=== PATIENT | male | born 1960 | race Caucasian/White ===

== ENCOUNTER 2017-02-02 07:00 | Inpatient (IN) | payer BC ==
[~2017-02-02] VITALS: Ht 182.9 cm; Wt 121.0 kg
--- NOTE | ~2017-02-02 | ECHO ---
Transthoracic Echocardiography Report (TTE) Demographics Patient Name WANDY PUENTES Date of Study 02/02/2017 Patient Number [id number] Visit Number [id number] Date of 1960 Room Number G6330 Gender Male Number Age 56 year(s) Referring Neelima Dominguez Netting Weaver Marla Silveira RVT Physician MD Martir Choudhury MD Physician Interpreting Leandro Gilman Taxation Agent Physician Supervising Ordering Neelima Dominguez MD/MLP Physician Nurse Stress Bale Sewer Conclusions Contractility Score Summary Normal Left Ventricular contractility was noted. Summary The estimated left ventricular ejection fraction is 50% with normal WM and internal dimension.Mild concentric hypertrophy with moderate OLIVIA. Diastolic assessment reveals Grade II pseudonormal diastolic function . The left atrium is moderately dilated. Trivial mitral regurgitation by color Doppler. Procedure Type of Study TTE procedure:2D Echocardiogram. Procedure Date Date: 02/02/2017 Start: 03:22 PM Study Location: Inpatient Portable Technical Quality: Adequate visualization Indications:Post PTCA. Appropriate Use Criteria: 9 Patient Status: Routine HR: 51 bpm Allergies - No known allergies. M-Mode/2D Measurements LV Diastolic Dimension: 5.48 cm LV Systolic Dimension: 4.72 cm LV Septum Diastolic: 1.63 cm LV PW Diastolic: 1.24 cm AO Root Dimension: 3.1 cm Cardiac Output: 3.66 l/min AV Cusp Separation: 2 cm RV Diastolic Dimension: 3.29 cm LA volume: 100 ml LVOT: 2.2 cm RV Base: 2.85 cm LVOT VTI: 18.9 cm RV Mid: 3.14 cm LV Stroke volume: 71.81 ml TAPSE: 1.69 cm TDI-S': 15.4 cm/s Doppler Measurements AV Peak Velocity: 1.46 m/s MV Peak E-Wave: 0.89 m/s AV Peak Gradient: 8.53 mmHg MV Peak A-Wave: 0.48 m/s AV Mean Gradient: 4 mmHg MV E/A Ratio: 1.86 LVOT Peak Velocity: 0.99 m/s MV P1/2t: 62 msec PV Peak Velocity: 0.92 m/s E' Septal Velocity: 0.08 m/s PV Peak Gradient: 3.42 mmHg E' Lateral Velocity: 0.11 m/s A' Septal Velocity: 0.11 m/s A' Lateral Velocity: 0.14 m/s Findings Left Ventricle Mild concentric LVH with moderate OLIVIA with normal EF,WM and internal dimension. Diastolic assessment reveals Grade II pseudonormal diastolic function . Right Ventricle Normal right ventricle structure and function. Left Atrium The left atrium is moderately dilated. Right Atrium Normal right atrial size. Mitral Valve Trivial mitral regurgitation by color Doppler. Aortic Valve Normal aortic valve structure and function. Tricuspid Valve Normal tricuspid valve structure and function. Pulmonic Valve Normal pulmonic valve structure and function. Pericardial Effusion No evidence of pericardial effusion. Miscellaneous Visualized portions of the aortic root and ascending aorta appear normal in size. Pleural Effusion No evidence of pleural effusion. Contractility Score LV regional wall motion:(0-Non visualized 1-Normal 2-Hypokinesis 3-Akinesis 4-Dyskinesis 5-Aneurysm) Signature dtt: Kalina Reeves dtd: 02/02/17 1522 Physician Self Edit
--- NOTE | ~2017-02-02 | DS ---
PATIENT'S NAME: WANDY PUENTES [facility] AGE: 56 Y [address] ROOM: G6330 [place], [place] [address] LOCATION: GPCU ADMIT DATE: 02/02/2017 Discharge Summary DISCHARGE DATE: FAMILY PHYSICIAN: Doroteo Pardo MD ATTENDING PHYSICIAN: Yang Mcmahan PRINCIPAL DIAGNOSES: 1. Acute coronary syndrome with 2 drug-eluting stent to RCA and one drug- eluting stent to mid LAD. 2. Prediabetes. 3. Sinus bradycardia. 4. Moderate obesity. HOSPITAL COURSE: This is a 56-year-old gentleman with a past medical history of carcinoid tumor, status post resection, presented to emergency department with a chest pain which was central, pressure-like, very much consistent with cardiac in etiology. Initial EKG showed ST depression in the lateral leads as well as T-wave inversion in the anterior leads. Repeat EKG did show worsening of these findings. He was also found in sinus bradycardia. Initial troponin levels were mildly elevated but did go as high as 17. Cardiology was consulted and the patient was immediately taken to the laboratory operations coordinator with stenting done to RCA as well as mid LAD. He got chest pain resolution upon receiving the stent. On lab work, he also had hemoglobin A1c of 6.3. He was started on metformin. He will be discharged on multiple new drugs which would include dual anti-platelets, beta-blockers and a statin. He will also be started on metformin. We will have him follow up with Cardiology as well as primary care physician. Echocardiography has been done in this hospitalization, which still needs to be read at this point. DISCHARGE MEDICATIONS: Includes: 1. Brilinta 90 mg p.o. b.i.d., please do not stop this medication. 2. Aspirin 81 mg p.o. every day. 3. Lipitor 80 mg p.o. every day. 4. Metoprolol succinate 12.5 mg p.o. every day. 5. Metformin 500 mg p.o. b.i.d. SUBJECTIVE: On the day of the discharge, no acute events overnight. Denied any chest pain, shortness of breath, headache, or fever. OBJECTIVE: VITAL SIGNS: Reviewed and were within normal limits. GENERAL: No acute distress. Alert and oriented x3. CARDIOVASCULAR: S1, S2. No murmurs, gallops, or rubs. LUNGS: Clear to auscultation bilaterally. ABDOMEN: Soft, nontender, nondistended. Bowel sounds are present. EXTREMITIES: No clubbing, cyanosis, or edema. PATIENT'S NAME: WANDY PUENTES [facility] AGE: 56 Y [address] ROOM: [place] [address] LOCATION: GPCU ADMIT DATE: 02/02/2017 Discharge Summary DISCHARGE DATE: FAMILY PHYSICIAN: Doroteo Pardo MD ATTENDING PHYSICIAN: Yang Mcmahan LABORATORY DATA: Reviewed with troponins coming down from 35 to 23 to 13. Chemical panel was unremarkable with mild elevation of the AST to 66. LDL was 117, HDL 34, total cholesterol 205. DISCHARGE INSTRUCTIONS: Cardiac rehab plus lifestyle modification to lose weight. Start metformin as well. FOLLOWUP: Follow up with primary care physician in 1 week. Follow up with Cardiology in 4 weeks. I spent 35 minutes in discharge planning, coordination of care as well as explaining the diagnosis and the followup to the patient. MD JACK FLORENTINO/césar /[id number] d: 02/03/17 1105 t: 02/04/17 1657, DISCHARGE SUMMARY
--- NOTE | ~2017-02-02 | HP ---
PATIENT'S NAME: WANDY PUENTES [facility] AGE: 56 Y [address] ROOM: [place] [address] [facility] ADMIT DATE: 02/02/2017 History & Physical DISCHARGE DATE: FAMILY PHYSICIAN: PHYSICIAN, UNKNOWN ATTENDING PHYSICIAN: YOSEF JASON DATE OF SERVICE: CHIEF COMPLAINT: Chest pain. HISTORY OF PRESENT ILLNESS: A 56-year-old gentleman with a past medical history of resection of carcinoid tumor, on no home medications, known smoker, presented to the [place] [facility] with chest pain, which started 4:30 this morning, located in the center of the chest about 7 x 10, and no radiation. Continued for good 2 hours and relieved with the nitroglycerin in the emergency department. No aggravating or alleviating factors associated with severe diaphoresis. No shortness of breath or dizziness are reported along with it. On further inquiry, he denied any headache, any trouble with the eyes, any trouble swallowing, any palpitations, any cough, sputum production, abdominal pain, burning on urination, constipation, diarrhea, PND, orthopnea, or leg swelling. REVIEW OF SYSTEMS: All other systems reviewed and were negative except what is mentioned in the HPI. ALLERGIES: NO KNOWN DRUG ALLERGIES. PAST MEDICAL HISTORY: 1. History of carcinoid tumor. 2. Questionable history of hypertension. MEDICATIONS: No home medications. SOCIAL HISTORY: Never a smoker. No alcohol or drug abuse. He is an electrician's assistant by profession. FAMILY HISTORY: Positive for stroke in dad at the age of 49 as well as diabetes. PHYSICAL EXAMINATION: PATIENT'S NAME: WANDY PUENTES [facility] AGE: 56 Y [address] ROOM: [address] [address] LOCATION: [facility] ADMIT DATE: 02/02/2017 History & Physical DISCHARGE DATE: FAMILY PHYSICIAN: PHYSICIAN, UNKNOWN ATTENDING PHYSICIAN: YOSEF JASON VITAL SIGNS: 145/68, 45, 12, and satting 95% on room air. GENERAL: No acute distress. Alert and oriented x3. HEENT: Head: Atraumatic, normocephalic. Eyes: Nonicteric. No pallor. Oropharynx: Moist mucous membranes. CARDIOVASCULAR: S1, S2. No murmurs, gallops, or rubs. LUNGS: Clear to auscultation bilaterally. ABDOMEN: Soft, nontender, nondistended. Bowel sounds present. EXTREMITIES: No clubbing, cyanosis, or edema. PSYCH: Normal affect, mood, and speech. NEURO: Cranial nerves 2 through 12 intact. No motor or sensory deficit. ENDOCRINE: No thyromegaly or cushingoid features noted. LYMPHATICS: No lymphangitis or lymphadenopathy present. MUSCULOSKELETAL: No muscle tenderness or joint swelling noted. DIAGNOSTIC DATA: EKG from outside facility was reviewed and did show sinus bradycardia with T- wave inversion in the lateral leads. Repeat EKG showed worsening of the T- wave inversion in the lateral leads as well as ST depressions in I and aVL. His other lab work included chest x-ray, which did not reveal any acute changes except cardiomegaly without any vascular congestion. LABORATORY DATA: Lab work was reviewed, which was unremarkable. ASSESSMENT: 1. Acute coronary syndrome. 2. Sinus bradycardia. PLAN: We are going to start him on aspirin, statin, heparin drip, and nitro. No beta-blockers given his low heart rate. Cardiology is going to take the patient to the [facility] urgently. N.p.o. for that. Cardiac diet after that. HbA1c, TSH, and lipid profile after that. The patient is full code. MD JACK FLORENTINO/césar /[id number] D: [id number] T: [id number] HISTORY & PHYSICAL
--- NOTE | ~2017-02-02 | CON ---
PATIENT'S NAME: WANDY PUENTES [facility] AGE: 56 Y [address] ROOM: [place] [address] LOCATION: GPCU ADMIT DATE: 02/02/2017 Consultation DISCHARGE DATE: 02/04/2017 FAMILY PHYSICIAN: Doroteo Pardo MD ATTENDING PHYSICIAN: Yang Mcmahan CORRECTED COPY -- REQUESTING PROVIDER / 02-05-2017 / ANGIE DATE OF CONSULTATION: 02/02/2017 REQUESTING PROVIDERS: 1. Dr. Reeves. 2. Dr. Mcmahan. CHIEF COMPLAINT: Chest pain. HISTORY OF PRESENTING ILLNESS: The patient is a very pleasant, 56-year-old male who has a history of carcinoid tumor of the small intestine as well as history of kidney stones. He does not have any prior cardiac history. He was in his usual state of health up until this morning at 4 a.m. He got up to go to the bathroom, and he started having severe chest pain, 7/10 on pain scale, and it persisted and was not improving. It was associated with some shortness of breath, no radiation, as well as diaphoresis. Since symptoms did not improve, he drove himself to the emergency room, which is about 4 blocks away. Once he went to the ER, there was evidence of ST changes as well as mildly elevated troponin with ongoing chest pain. He was given aspirin and 2 sublingual nitroglycerin, and he was transferred to our facility. Upon arrival here, the patient still continued to have chest pain, 3/10 on pain scale. It is mostly tightness in nature. He is mildly uncomfortable from this. There are increasing ST depressions in leads I, aVL, as well as V1 to V6 compared to prior EKG at [place]. Since he is having ongoing chest pain, nitroglycerin drip as well as heparin drip were started here, and plan to start Aggrastat drip as well and take him emergently to the cardiac biological lab technician. Risks and benefits discussed with the patient, and he is agreeable to proceed with plan. He does not have any bleeding issues. No contrast allergies. No contraindications to DAPT. He does not have any nausea, vomiting, fever, chills, cough, or sputum production. No changes in his vision, speech, strength, or sensation. No changes in his swallowing. No skin rashes. No recent travel. PAST MEDICAL HISTORY: History of kidney stones as well as neuroendocrine carcinoid of the small bowel and incisional hernia. PAST SURGICAL HISTORY: Cholecystectomy and surgery for the carcinoid tumor of the small bowel. PATIENT'S NAME: WANDY PUENTES [facility] AGE: 56 Y [address] ROOM: [place] [address] LOCATION: GPCU ADMIT DATE: 02/02/2017 Consultation DISCHARGE DATE: 02/04/2017 FAMILY PHYSICIAN: Doroteo Pardo MD ATTENDING PHYSICIAN: Yang Mcmahan ALLERGIES: NO KNOWN DRUG ALLERGIES. HOME MEDICATIONS: None. SOCIAL HISTORY: Nonsmoker. No drinking. No drug abuse. FAMILY HISTORY: Positive for premature coronary artery disease. REVIEW OF SYSTEMS: All review of systems discussed with the patient. Pertinent positives and negatives mentioned in the History of Presenting Illness. PHYSICAL EXAMINATION: VITAL SIGNS: Sinus bradycardia, heart rate in the 40s, blood pressure 150/80, afebrile, respiratory rate 14, and O2 saturation is greater than 90% on room air. NECK: No JVD. HEART: S1 and S2, regular rate and rhythm. HEENT: Head: Atraumatic, normocephalic. Mucous membranes moist. Sclerae are white. LUNGS: Clear to auscultation bilaterally. ABDOMEN: Bowel sounds positive. Soft, nontender, and nondistended. EXTREMITIES: No significant lower extremity edema. MUSCULOSKELETAL: Good range of motion. NEUROLOGIC: Grossly normal. The patient is not in any apparent distress. Alert and oriented. Mood normal. Affect normal. The patient is very pleasant and cooperative, answers all questions appropriately. GENERAL: Pt is alert and oriented, NAD, normal mood and affect, pt is cooperative and answers all questions appropriately. LABORATORY DATA: Glucose 170, BUN 17, creatinine 1.17, GFR greater than 60, sodium 141, potassium 4.2, chloride is 104, and calcium 9.3. Albumin 3.9 and globulin 3.5. AST 28, ALT 41, and alkaline phosphatase is 74. Calculated osmolality 287. CK- MB 4.8, troponin elevated at 0.630, and INR is 0.9. WBC 7.8, H and H 15.1 and 45.5, and platelets are 203. EKG: Sinus bradycardia with ST depressions in leads I, aVL, and V1 to V6. Labs here are pending. IMPRESSION: 1. [id number] myocardial infarction. PATIENT'S NAME: WANDY PUENTES [facility] AGE: 56 Y [address] ROOM: [place], [place] [address] LOCATION: GPCU ADMIT DATE: 02/02/2017 Consultation DISCHARGE DATE: 02/04/2017 FAMILY PHYSICIAN: Doroteo Pardo MD ATTENDING PHYSICIAN: Yang Mcmahan 2. History of carcinoid tumor, status post surgery. 3. Sinus bradycardia. PLAN: At this time, the patient has evidence of ongoing ischemia with active chest pain as well as increased cardiac biomarkers as well as ST depressions on EKG. He is a candidate for cardiac cath and possible intervention. There are no contraindications to cath. He does not have any bleeding issues. His renal function is stable at this time. All the risks and benefits including risks of bleed, bruise, infection 1 in 100 cases, risk of heart attack, , stroke, [place], CVA, MIKE, and ending up on dialysis is less than 1 in 1000 cases. The patient is agreeable to proceed with plan. Informed consent obtained. Further treatment and plan after the cardiac cath findings. Thank you very much for allowing us to participate in the care of Mr. Puentes. KYLE TANNER MD AT/modl /[id number] CORRECTED COPY -- REQUESTING 02-05-2017 / KLD d: 02/02/17 1054 t: 02/06/17 1237, CONSULTATION REPORT
--- NOTE | ~2017-02-02 | CATH ---
Cardiac Diagnostic + PCI Report Demographics Patient Name DHAVAL Saez Gender Male Date of 1960 Age 56 year(s) Patient Number [id number] Date of Study 02/02/2017 Visit Number [id number] Room Number G6330 [place] [id number] Ht Wt 121 kg Accession Number [id number] BMI Referring [facility] Primary Physician Physician Angelica DOMINGUEZ Performing [facility] Secondary Physician Physician Angelica DOMINGUEZ Diagnostic [facility] Assisting Physician Physician Angelica DOMINGUEZ Interventional [facility] Physician Circulation Librarian Physician Angelica DOMINGUEZ Findings and Conclusions Diagnostic Findings and Conclusion 2 vessel obstructive CAD Acute thrombotic occlusion of the distal RCA, proximal RCA 80% diffuse disease and there is 80% stenosis in the mid LAD. Moderate Disease in mid circ and OM. Diagnostic Recommendations PCI of RCA given complete occlusion and mid LAD- given ST changes in anterior leads. Interventional Findings and Conclusion 1. Status PCI of prox and mid RCA, with 2 SATURNINO, thrombus dislodged into PLV branch s/p aspiration thrombectomy. 2. Status post PTCA diag and PCI of mid LAD with SATURNINO. COREY III flow in Diag side branch post PCI. Interventional Recommendations Patient will be observed overnight. Continue current medications. Hydration and followup creatinine. Patient has been instructed to not lift anything more than 5 pounds for 1 week. Aggressive risk factor management. Aggressive medical therapy for coronary artery disease. Recommend aggressive risk factor modification. Statin. ASA. Beta Victoriano. Germán Inhibitor. Dual Anti-platelet therapy. Optimization of medical therapy as an outpatient. Cardiac diet . Optimization of medical therapy as an inpatient. Referral to Cardiac Rehabilitation now and at discharge . I would like to thank Dr. Reeves for the opportunity to participate in the care of Mr Alejandra . Procedure Description The patient was brought to the diagnostic cardiac catheterization-EP laboratory in the fasting, non-sedated state. Informed consent was obtained in the written and verbal form after the risks and benefits were explained. The patient had no further questions and agreed to proceed. The planned puncture-incision site(s) were shaved and prepped with ChloraPrep and draped in the usual sterile manner. Conscious sedation, supplemental oxygen, and pain control medications were delivered by a registered nurse under physician guidance. Surface ECG rhythm, blood pressure measurement, and pulse oximetry were monitored throughout the procedure. Arterial access. The access site was infiltrated with lidocaine. The vessel was entered with the Seldinger technique. A sheath was advanced into the vessel and used for catheter placement. Selective left coronary angiography. A catheter was advanced into the left coronary vessel ostium under Fluoroscopic guidance. Contrast was injected by hand. Images were obtained in multiple projections. Selective right coronary angiography. A catheter was advanced into the right coronary vessel ostium under fluoroscopic guidance. Contrast was injected by hand. Images were obtained in multiple projections. Angioplasty and Stent Placement: A guiding catheter was used to intubate the vessel. A 0.14 wire was then used to cross the lesion. A balloon catheter was placed across the lesion and inflated. The balloon catheter was then removed. A Drug Eluting Stent was placed and inflated. Post placement angiograms were performed. Arterial artery hemostasis was achieved. The patient was transferred to a regular nursing floor via cart accompanied by a nurse. The patient left the laboratory in stable condition. Diagnostic Cath Status: Urgent Interventional Cath Status: Urgent Procedure Procedure Type Diagnostic procedure:Angiography:, Coronary Angios PCI procedure:Drug Eluting Coronary Stent:, LAD, RCA Indications: NSTEMI. The procedure was explained in detail to the patient. Risks, complications and alternative treatments were reviewed. Written consent was obtained. Medications Reviewed with Patient prior to Procedure. Angiographic Findings Dominance: Right Cardiac Arteries and Lesion Findings LMCA: Normal (0% Stenosis). LAD: Lesion on Mid LAD: Mid subsection.80% stenosis 16 mm length . Pre procedure COREY III flow was noted. Post Procedure COREY III flow was present. The guidewire cross was successful.The lesion was diagnosed as a moderate risk lesion.Culprit lesion. Devices used - [employer] Henderson Wire .014 x. Number of passes: 1. - Emerge Balloon 2.5 x 12. 1 inflation(s) to a max pressure of: 16 cj. - Runthrough NS .014 x 180. Number of passes: 1. - Promus Premier 3.5 x 20 Stent. 1 inflation(s) to a max pressure of: 12 cj. Lesion on 1st Diag: Ostial.50% stenosis . LCx: Lesion on Mid CX: Mid subsection.50% stenosis . Lesion on 1st Ob Isatu: Proximal subsection.50% stenosis . RCA: Lesion on Dist RCA: Proximal subsection.100% stenosis 20 mm length reduced to 0%. Pre procedure COREY 0 flow was noted. Post Procedure COREY III flow was present. The guidewire cross was successful.The lesion was diagnosed as a high risk lesion.Culprit lesion. Devices used - Runthrough NS .014 x 180. Number of passes: 1. - Emerge Balloon 2.5 x 12. 1 inflation(s) to a max pressure of: 6 cj. - Promus Premier 4.0 x 20 Stent. 1 inflation(s) to a max pressure of: 12 cj. Lesion on R PDA: Devices used - Emerge Balloon 2.5 x 12. 2 inflation(s) to a max pressure of: 4 cj. - Pronto LP Aspiration Catheter. Number of passes: 1. Lesion on Prox RCA: Proximal subsection.80% stenosis 32 mm length reduced to 0%.Post Procedure COREY III flow was present. The guidewire cross was successful.The lesion was diagnosed as a high risk lesion. Devices used - Promus Premier 4.0 x 32 Stent. 1 inflation(s) to a max pressure of: 12 cj. Coronary Tree Procedure Data Procedure Date Date: 02/02/2017Start: 09:12 AMEnd: 10:17 AM Entry Locations - Percutaneous access was performed through the Right Radial artery (Primary location). A 6 Fr sheath was inserted. Unsuccessful closure attempt was performed using: an R band. Hemostasis was successfully obtained using Mechanical Compression. Closure Comments: R) applied by Josiah, 15 ml of air in band.. Procedure Medications Order and Administration + + + + + !Time !Medication !Dosage !Route ! + + + + + !02/02/2017 09:07 !Fentanyl !50 mcg !I.V. ! !AM ! ! ! ! + + + + + !02/02/2017 09:07 !Versed !1 mg !I.V. ! !AM ! ! ! ! + + + + + !02/02/2017 09:13 !Oxygen !2 l/min !NC ! !AM ! ! ! ! + + + + + !02/02/2017 09:14 !Oxygen !5 l/min !NC ! !AM ! ! ! ! + + + + + !02/02/2017 09:18 !Oxygen !6 l/min !NC ! !AM ! ! ! ! + + + + + !02/02/2017 09:23 !Heparin (ACC_3) ! ! ! !AM ! ! ! ! + + + + + !02/02/2017 09:23 !Nitroglycerin !15 mcg/min !I.V. drip ! !AM ! ! ! ! + + + + + !02/02/2017 09:24 !Angiomax (Bivalirudin) !90 mg !I.V. bolus ! !AM !(ACC_5) ! ! ! + + + + + !02/02/2017 09:27 !Angiomax (Bivalirudin) !1.75 mg/kg/hr!I.V. drip ! !AM !(ACC_5) ! ! ! + + + + + !02/02/2017 09:29 !Nitroglycerin ! !I.V. drip ! !AM ! ! ! ! + + + + + !02/02/2017 09:29 !Atropine !0.3 mg !I.V. ! !AM ! ! ! ! + + + + + !02/02/2017 09:30 !0.9% NaCl !999 ml/hr !I.V. bolus ! !AM ! ! ! ! + + + + + !02/02/2017 09:45 !Aggrastat (Tirofiban) !3.125 mcg/kg !I.V. bolus ! !AM ! ! ! ! + + + + + !02/02/2017 09:45 !Fentanyl !50 mcg !I.V. ! !AM ! ! ! ! + + + + + !02/02/2017 09:47 !Nitroglycerin !10 mcg/min !I.V. drip ! !AM ! ! ! ! + + + + + !02/02/2017 10:10 !Brilinta (Ticagrelor) !180 mg !P.O. ! !AM !(ACC_20) ! ! ! + + + + + !02/02/2017 10:11 !Oxygen !2 l/min !NC ! !AM ! ! ! ! + + + + + !02/02/2017 10:13 !Angiomax (Bivalirudin) ! !I.V. drip ! !AM !(ACC_5) ! ! ! + + + + + Devices Used - A5 Fr. BS JR 4 Diag. Catheterwas used for:Right coronary angiography. - A5 Fr. BS JL 3.5 Diag. Catheterwas used for:Left coronary angiography. - A6 Fr. JR4 Guide Catheterwas used for:RCA Intervention. - A6 Fr. EBU 3.5 Guide Catheterwas used for:LAD Intervention. Contrast Material - Isovue [id number] ml Fluoroscopy Time: Diagnostic: 15:18 minutes. Total: 15:18 minutes. Fluoroscopy Dose: Diagnostic: 6954 mGy. Total: 2784 mGy. Estimated Blood Loss: 30 ml. Additional [facility] PCI Information PCI Indication:PCI for high risk Non-STEMI or unstable angina. Medical History Performed Procedures and Imaging Results - No [facility] stress or imaging studies were performed. Allergies - No known allergies. Risk Factors The patient risk factors include:hypercholesterolemia, hypertension, family history of premature CAD and dyslipidemia. Admission Data Admission Date: 02/02/2017 Admission Time: 07:45 AM Admit Source: Transfer [facility] facility Insurance Payors: Private health insurance. Admission Medications + +------+-----+---------+---------+ + + !Medication !Dosage!Times!Last !Last !Administered !Comments ! ! ! !Per !Delivery !Delivery ! ! ! ! ! !Day !Date !Time ! ! ! + +------+-----+---------+---------+ + + !Nitrates (iv or! ! ! ! !Yes ! ! !buccal) ! ! ! ! ! ! ! + +------+-----+---------+---------+ + + !Unfractionated ! ! ! ! !Yes ! ! !Heparin (any) ! ! ! ! ! ! ! + +------+-----+---------+---------+ + + !Aspirin (any) ! ! ! ! !Yes ! ! + +------+-----+---------+---------+ + + Clinical Evaluation Leading to Procedure - The patient's CAD presentation was assessed as: Non-STEMI. Hemodynamics Condition: Rest Heart Rate: 50 bpm Pressures (mmHg) +-----+ + !Site !Pressure ! +-----+ + !AO !117/77 (93) ! +-----+ + Shunts Oxygen Values O2 Capacity 205.36 Signatures dtt: ANGELICA TANNER dtd: 02/02/17 0912 Physician Self Edit
--- NOTE | 2017-02-02 14:25 | NUR ---
ADMITTED TO PCU @ 0750 FROM [facility] FOR C/O FOR CHEST PAIN. AWOKE THIS AM AROUND 0400 WITH 7/10 PAIN IN CHEST. UPON ARRIVAL TO FLOOR WAS ON HEPARIN GTT, NITRO GTT @ 30 MCG/MIN AND NS @ 100 ML/HR, HAD JUST RECEIVED 2 MG IV MORPHINE IN ROUTE AND CONTINUED TO C/O CHEST PAIN @ 3/10. HISTORY OF SMALL INTESTINE CARCINOID TUMOR S/P REMOVAL, HYPERTENSION, DIVERTICULITIS. NKMA.
--- NOTE | 2017-02-02 16:59 | NUR ---
Significant Event: A/O X3. UP WITH MINIMAL ASSIST. TO DATA COLLECTION ASSOCIATE @ 0900, RETURNED @ 1025. STENT X2 TO RCA AND X1 TO LAD. RIGHT RADIAL SITE WITH BANDAID AND COBAN IN PLACE, NO COMPLICATIONS. NS @ 100 ML/HR X10 HOURS, DC @ 2000. NITRO GTT DC'D AFTER ARRIVAL TO FLOOR, DENIES CHEST PAIN. IV TO RIGHT HAND SL'D. IV TO LEFT AC WITH NS INFUSING. HR'S 50'S-60'S, HELD TOPROL XL PER DR. COLLADO. FAMILY AT BEDSIDE. Follow up:
[2017-02-03 06:04] LABS: BASOPHIL % 0.3 %; EOSINOPHIL # 0.1 K/uL (0.0-0.5); EOSINOPHIL % 1.3 %; HEMATOCRIT 43.4 % (37.0-53.0); HEMOGLOBIN 14.2 g/dL (12.0-17.0); IMMATURE GRANULOCYTE % 0.5 %; LYMPHOCYTE # 2.2 K/uL (0.8-4.0); LYMPHOCYTE % 28.4 %; MCH 29.1 pg (27.0-34.0); MCHC 32.7 gm/dL (32.0-36.5); MCV 88.9 fl (83.0-98.0); MONOCYTE # 0.5 K/uL (0.0-1.0); MONOCYTE % 6.7 %; MPV 10.7 fl (9.4-12.4); NEUTROPHIL # (ANC) 4.9 K/uL (1.4-9.0); NEUTROPHIL % 62.8 %; NRBC % 0 /100WBC (0-0.00); PLATELET COUNT 182 K/uL (150-450); RBC 4.88 M/uL (4.00-6.00); WBC 7.8 K/uL (4.0-11.0)
[2017-02-03 06:36] LABS: ALBUMIN 3.3 gm/dL (3.5-5.0); ANION GAP 12.2 (10.0-19.0); CALCIUM 8.5 mg/dL (8.5-10.5); POTASSIUM 4.2 mMol/L (3.7-5.1); TOTAL BILIRUBIN 1.5 mg/dL (0.0-1.5); TOTAL PROTEIN 6.7 g/dL (6.0-8.4)
--- NOTE | 2017-02-03 06:37 | NUR ---
Significant Event: Patient is alert/oriented x3. Vital signs are stable. Continues on room air. Denies any pain. Right radial site is covered with bandaid and coban wrap, site is soft and CSM is WNL. Cardiac enzymes are trending down. Follow up: Possible dismissal to home today.
[2017-02-03] MEDS ORDERED: ASPIRIN LO-DOSE81 MG PO (10:29)
[2017-02-03] MEDS ORDERED: LIPITOR80 MG PO (10:30)
[2017-02-03] MEDS ORDERED: TOPROL XL25 MG PO (10:32)
[2017-02-03] MEDS ORDERED: BRILINTA90 MG PO (10:33)
[2017-02-03] MEDS ORDERED: NITROSTAT0.4 MG SL (10:38)
[2017-02-03] MEDS ORDERED: GLUCOPHAGE500 MG PO (10:40)
--- NOTE | 2017-02-03 16:46 | NUR ---
Significant Event:Patient has not had any chest pain today. Does vary between NSR and junctional rhythm. Did have 10 beats of V-Tach at 1200. Aymptomatic. Right radius cath site- soft. Bandaid changed. Toprol XL dose increased. Accuchecks at 0700-115; 1100-103- no SSI. [facility]
--- NOTE | 2017-02-04 05:05 | NUR ---
Significant events: Pt A/Ox3. VSS, HR high 40's-70's, no Vtach this shift. Up SBA. No complaints of pain. R) wrist, soft, no hematoma. Slept well. Possible home today.
--- NOTE | 2017-02-04 13:22 | NUR ---
D:Patient discharged home. Has prsonal belongings. Feels ready to go home. Discussed discharge instructions with patient, son there. Patient has information, and verbelizes understanding. Understands to make follow up appt with Dr. Fuentes and PCP. Disharged per [facility] Entrance, ambulatory, released to son at 1215, to return home.
== END 2017-02-04 12:15 | disposition disaster alternative care site (69) | DRG 216 ==
LOC: GPCU 07:45
PROVIDERS: Internal Medicine Interventional Cardiology; ADMIT Internal Medicine
PROC: B216YZZ Fluoroscopy of Right and Left Heart using Other Contrast (ICD-10-PCS; principal; 2017-02-02)
PROC: 5A02216 Assistance with Cardiac Output using Other Pump, Continuous (ICD-10-PCS; principal; 2017-02-02)
PROC: 027135Z Dilation of Coronary Artery, Two Arteries with Two Drug-eluting Intraluminal Devices, Percutaneous Approach (ICD-10-PCS; principal; 2017-02-02)
PROC: 4A023N8 Measurement of Cardiac Sampling and Pressure, Bilateral, Percutaneous Approach (ICD-10-PCS; principal; 2017-02-02)
DX: I24.9 Acute ischemic heart disease, unspecified (principal); I21.4 Non-ST elevation (NSTEMI) myocardial infarction; E66.01 Morbid (severe) obesity due to excess calories; R73.03 Prediabetes; R00.1 Bradycardia, unspecified; Z68.36 Body mass index [BMI] 36.0-36.9, adult; Z85.030 Personal history of malignant carcinoid tumor of large intestine; Z90.49 Acquired absence of other specified parts of digestive tract; Z09 Encounter for follow-up examination after completed treatment for conditions other than malignant neoplasm; Z88.8 Allergy status to other drugs, medicaments and biological substances; F17.200 Nicotine dependence, unspecified, uncomplicated; I10 Essential (primary) hypertension; Z79.82 Long term (current) use of aspirin; Z79.84 Long term (current) use of oral hypoglycemic drugs
CPT/HCPCS: C1725; C1757; C1769; C1874; C1887; C9600; J0461; J0583; J1644; J2250; J3010; J3246; J7030; J7060